=== PATIENT | male | born 1955 ===

== ENCOUNTER 2017-05-01 07:24 | Emergency (ER) | payer MEDICAID, OTHER ==
[2017-05-01 07:28] VITALS: BP 158/95; PULSE 82; RESP 18; TEMP 98.3; O2SAT 98
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
== END 2017-05-01 09:51 | disposition home or self-care (01) ==
LOC: H.ER 07:24
DX: S16.1XXA Strain of muscle, fascia and tendon at neck level, initial encounter (principal); S30.0XXA Contusion of lower back and pelvis, initial encounter; Y04.0XXA Assault by unarmed brawl or fight, initial encounter; Y92.89 Other specified places as the place of occurrence of the external cause